=== PATIENT | male | born 2000 | race Hispanic/Latino ===

== ENCOUNTER 2019-12-01 01:12 | Emergency (ER) | payer SELFPAY ==
[2019-12-01 01:28] LABS: #Basophils 0.1 thou/uL (0.0-0.2); #Eosinphils 0.1 thou/uL (0.0-0.7); #Monocytes 0.8 thou/uL (0.11-0.59); #Neutrophils 5.4 thou/uL (1.40-6.50); %Basophils 1.2 % (0.0-1.0); %Eosinophils 1.4 % (0.0-10.0); %Lymphocytes 38.4 % (28.0-48.0); %Monocytes 7.9 % (0.0-4.0); %Neutrophils 51.2 % (31.0-61.0); Hemoglobin 13.9 g/dL (14.0-18.0); Mean Corpuscular HGB CONC 33.3 g/dL (32.0-36.0); Mean Corpuscular Hemoglobin 29.6 pg (25.0-35.0); Mean Platelet Volume 7.7 fL (7.4-10.4); Platelet Count 342 thou/uL (130-400); RBC Distribution Width 11.2 % (11.5-14.5); Red Blood Cell (RBC) Count 4.69 mill/uL (4.00-5.20); White Blood Cell (WBC) Count 10.5 thou/uL (4.8-10.8)
[2019-12-01] MEDS ORDERED: Pantoprazole 40 MG VIAL ONE (01:32)
[2019-12-01] MEDS ORDERED: Thiamine HCl 200 MG/2 ML VIAL ONE (01:32)
[2019-12-01] MEDS ORDERED: Dextrose 5 %-0.45 % NaCl 1,000 ML ONE (01:32)
[2019-12-01] MEDS ORDERED: Multivit, Adult Inj 10 ML VIAL ONE (01:32)
[2019-12-01] MEDS ORDERED: Ondansetron PF 4 MG/2 ML Vial ONE (01:32)
[2019-12-01 01:44] LABS: ALT (SGPT) 65 U/L (8-55); AST (SGOT) 45 U/L (5-34); Acetaminophen Less than 6.0 mcg/mL (10.0-30.0); Albumin 4.5 g/dL (3.5-5.0); Alcohol 228 mg/dL (Less than 10); Alkaline Phosphatase 69 U/L (50-130); Anion Gap 19 mmol/L (10-20); BUN (Urea Nitrogen) 9 mg/dL (8.9-20.6); Bilirubin, Total 0.5 mg/dL (0.2-1.2); CK (CPK) 660 U/L (30-200); Calc. Creatinine Clearance 0 mL/min (70-130); Calcium 7.9 mg/dL (7.8-10.44); Carbon Dioxide 19 mmol/L (22-29); Chloride 105 mmol/L (98-107); Estimated GFR-MDRD Greater than 90; Globulin 2.6 g/dL (2.4-3.5); Glucose 109 mg/dL (70-105); Potassium 3.1 mmol/L (3.5-5.1); Protein, Total 7.1 g/dL (6.0-8.3); Salicylate Less than 8.0 mg/dL (15.0-30.0); Sodium 140 mmol/L (136-145)
[2019-12-01] MEDS ORDERED: Midazolam HCl 2 mg/2 ml Vial ONE ×7 (02:12→03:16)
[2019-12-01 02:55] LABS: Amphetamine Detected (NotDetected); Benzodiazepine Screen Not Detected (NotDetected); Cocaine Metabolite Screen Detected (NotDetected); Methamphetamine Not Detected (NotDetected); Opiate Screen Not Detected (NotDetected); Phencyclidine (PCP) Not Detected (NotDetected); THC/Cannabinoid Screen Detected (NotDetected); Tricyclic Screen Not Detected (NotDetected)
[2019-12-01 02:56] LABS: Barbiturates Screen Not Detected (NotDetected); Bilirubin Negative (Negative); Blood, Urine Negative (Negative); Clarity Clear (Clear); Glucose, Urine (Dipstick) Negative (Negative); Ketone, Urine Negative (Negative); Leukocyte Negative (Negative); Medtox Control Line Valid? VALID (VALID); Methadone Not Detected (NotDetected); Nitrite Negative (Negative); Oxycodone Screen Not Detected (NotDetected); Protein, Urine (Dipstick) Negative (Neg-Trace); Urobilinogen 0.2 mg/dL (Less than 2)
[2019-12-01] MEDS ORDERED: PROPOFOL 200 MG/20 ML VIAL ONE (07:26)
[2019-12-01] MEDS ORDERED: Sodium Chloride 0.9% 1,000 ML BAG ONE (07:26)
[2019-12-01] MEDS ORDERED: Succinylcholine Chloride 20 MG/ML 10 ml SYRINGE FS ONE (07:26)
--- NOTE | 2019-12-01 08:26 | CT ---
PRELIMINARY REPORT/[facility]/EMERGENCY AFTER HOURS PROCEDURE EXAM: CT Head Without Intravenous Contrast. CLINICAL HISTORY: AMS, ETOH, PT ARRIVED UNRESPONSIVE, NO SIGNS OF TRAUMA TECHNIQUE: Axial computed tomography images of the head/brain without intravenous contrast. COMPARISON: None provided. FINDINGS: BRAIN: No acute intraparenchymal hemorrhage. No mass lesion. No CT evidence for acute territorial infarct. N o midline shift or extra-axial collection. VENTRICLES: No hydrocephalus. ORBITS: The orbits are unremarkable. SINUSES AND MASTOIDS: The paranasal sinuses and mastoid air cells are clear. SOFT TISSUES: No significant facial or scalp soft tissue swelling evident. No radiopaque foreign body is seen. BONES: No acute skull fracture. IMPRESSION: No acute intracranial abnormality. ELECTRONICALLY SIGNED BY: Yoana Valenzuela MD Dec 01, 2019 4:13:15 AM CDT This report is intended for review by the ordering physician only, in accordance of law. If you recei ve this report in error, please call [facility] at [phone]. FINAL REPORT CT HEAD NONCONTRAST 12/01/2019 performed on emergency basis at 0351 hours HISTORY: Altered mental status. Syncope. FINDINGS: Agree with the preliminary report by Dr. Valenzuela from [facility]. No acute intracran ial abnormalities are demonstrated. Transcribed Date/Time: 12/01/2019 8:32 AM
--- NOTE | 2019-12-01 11:10 | RAD ---
FRONTAL RADIOGRAPH OF CHEST PORTABLE SUPINE: Date: 12/01/2019 COMPARISON: 12/01/2019. HISTORY: Altered mental status, intubated patient. FINDINGS: Endotracheal tube and nasogastric tube in place. Supine imaging limits assessment for pneumothorax an d pleural fluid. There is pulmonary vascular congestion with prominence of the cardiac silhouette and perihilar nonspecific interstitial prominence. IMPRESSION: Lines and tubes as detailed above. Pulmonary vascular congestion and interstitial prominence may sign ivania volume loss, edema, or infectious pneumonitis. POS: [facility]
--- NOTE | 2019-12-01 11:13 | RAD ---
PORTABLE SUPINE FRONTAL CHEST RADIOGRAPH: Date: 12/01/2019 HISTORY: Intubated, altered mental status. FINDINGS: Endotracheal tube in proper positioning, terminating over the clavicular heads. Shallow inspiration l imits detailed assessment. There is prominence of the cardiac silhouette with pulmonary vascular bethany estion and nonspecific perihilar interstitial opacity. IMPRESSION: Endotracheal tube in place. Increased density in the perihilar regions may signify volume loss, infec tious pneumonitis, edema, or aspiration. Follow-up to resolution advised. POS: [facility]
== END 2019-12-01 04:11 | disposition short-term general hospital (02) ==
LOC: EDBD 01:12 → MADERS 01:12
DX: F10.129 Alcohol abuse with intoxication, unspecified (principal); R41.82 Altered mental status, unspecified; R04.0 Epistaxis; Y90.7 Blood alcohol level of 200-239 mg/100 ml
CPT/HCPCS: 31500; 51702; 70450; 71045; 80053; 80306; 80307; 81003; 82550; 85025; 94760; 96361; 96365; 96366; 96374; 96375; 96376; C9113; J2250; J2405; J2704; J3411; J7042; J7050